=== PATIENT | female | born 1955 | race Caucasian/White ===

== ENCOUNTER 2017-12-25 18:24 | Emergency (ER) | payer SELFPAY ==
--- NOTE | 2017-12-25 18:53 | RAD ---
CHEST TWO VIEWS: History: Fever. Comparison: None. FINDINGS: Lungs are clear. No pneumothorax or effusion. Cardiac silhouette and mediastinal contours are within normal limits. IMPRESSION: No acute intrathoracic abnormality. POS: [facility]
[2017-12-25] MEDS ORDERED: methylPREDNISolone Sod Succ/PF 125 MG/2 ML VIAL ONE (19:41)
[2017-12-25] MEDS ORDERED: predniSONE 20 MG TAB ONE ×2 (20:07)
[2017-12-25 20:32] LABS: ALT (SGPT) 124 U/L (8-55); AST (SGOT) 94 U/L (5-34); Albumin 4.2 g/dL (3.5-5.0); Alkaline Phosphatase 111 U/L (40-150); Anion Gap 16 mmol/L (10-20); BUN (Urea Nitrogen) 10 mg/dL (9.8-20.1); Bilirubin, Total 1.4 mg/dL (0.2-1.2); Calc. Creatinine Clearance 0 mL/min (70-130); Carbon Dioxide 24 mmol/L (22-29); Chloride 103 mmol/L (98-107); Estimated GFR-MDRD 87; Globulin 4.4 g/dL (2.4-3.5); Glucose 86 mg/dL (70-105); Potassium 3.6 mmol/L (3.5-5.1); Protein, Total 8.6 g/dL (6.0-8.3); Sodium 139 mmol/L (136-145)
[2017-12-25] MEDS ORDERED: Azithromycin 250 MG TAB ONE (20:37)
[2017-12-25 20:39] LABS: Eosinophils 3 % (0-10); Large Platelets SLIGHT; Lymphocytes 50 % (21-51); MDiff Complete? YES; Mean Corpuscular HGB CONC 34.5 g/dL (32.0-36.0); Mean Corpuscular Hemoglobin 32.8 pg (27.0-31.0); Mean Corpuscular Volume 95.1 fl (81.0-99.0); Monocytes 10 % (0-10); Neutrophil 31 % (42-75); PLT Morphology Comment Appears Decreased; Platelet Count 109 thou/uL (130-400); RBC Distribution Width 11.9 % (11.5-14.5); RBC Morphology Normal; Reactive Lymphocytes 5 % (0-10); Red Blood Cell (RBC) Count 4.87 mill/uL (4.20-5.40); White Blood Cell (WBC) Count 6.4 thou/uL (4.8-10.8)
--- NOTE | 2017-12-25 20:49 | CT ---
CT CHEST WITHOUT CONTRAST: History: Cough, fever. Evaluate for pneumonia. Comparison: Chest radiograph, same day. FINDINGS: There are a few faint posterior segment right upper lobe central lobular pulmonary nodules. No pneumo thorax. No large effusion. Remainder of the lungs are clear. Upper abdomen is unremarkable. Moderate sized sliding hiatal hernia. A few likely reactive pretrachea l lymph nodes. Moderate calcification of the aorta. Ascending aorta measures up to 36 mm. Hepatic contour appears nodular. Skeleton is unremarkable. IMPRESSION: 1. Faint right upper lobe airspace central lobular opacity may represent infection or aspiration. 2. Moderate sized sliding hiatal hernia. 3. Nodular appearance of the liver suggesting cirrhosis. POS: [facility]
== END 2017-12-25 20:49 | disposition home or self-care (01) ==
LOC: SCSER 18:24
DX: J18.9 Pneumonia, unspecified organism (principal); M19.90 Unspecified osteoarthritis, unspecified site; J44.9 Chronic obstructive pulmonary disease, unspecified; F17.210 Nicotine dependence, cigarettes, uncomplicated
CPT/HCPCS: 71046; 71250; 80053; 83605; 85025; J2930; J7506; J7620

== ENCOUNTER → 2023-10-30 | Day surgery (SDC) | payer MEDICARE, MEDICAID | LOC: BICULT 12:43 | PROVIDERS: ATTEND Specialist | PROC: 0H95XZX Drainage of Chest Skin, External Approach, Diagnostic (ICD-10-PCS; principal; 2023-10-30) | DX: C50.411 Malignant neoplasm of upper-outer quadrant of right female breast (principal) | CPT/HCPCS: 19083; 19084; 38505; 88305; 88341; 88342; 88360; 88361 ==

== ENCOUNTER 2023-11-11 08:46 | Inpatient (IN) | payer MEDICARE, MEDICAID ==
[2023-11-11 09:25] LABS: Bilirubin Negative (Negative); Blood, Urine Negative (Negative); CAUTI Indications for Culture Alt mental st,lethar; Clarity Turbid (Clear); Glucose, Urine (Dipstick) Normal (Negative); Ketone, Urine Negative (Negative); Leukocyte 250 Leu/uL (Negative); Nitrite Negative (Negative); Protein, Urine (Dipstick) Negative (Neg-Trace); RBC/HPF 0-3 HPF (0-3); Specific Gravity, Urine 1.012 (1.002-1.036); Squamous Epithelial 0-3 HPF (0-3); Urobilinogen Greater than 12 mg/dL (Less than 2); pH, Urine 6.5 (5.0-9.0)
[2023-11-11 09:26] LABS: Bacteria/HPF 1+ HPF (None Seen)
[2023-11-11 09:28] LABS: Urine Culture Reflex Yes Yes
[2023-11-11 09:32] LABS: Amphetamine Not Detected (NotDetected); Barbiturates Screen Not Detected (NotDetected); Benzodiazepine Screen Not Detected (NotDetected); Cocaine Metabolite Screen Not Detected (NotDetected); Methadone Not Detected (NotDetected); Methamphetamine Not Detected (NotDetected); Opiate Screen Not Detected (NotDetected); Oxycodone Screen Not Detected (NotDetected); Phencyclidine (PCP) Not Detected (NotDetected); THC/Cannabinoid Screen Not Detected (NotDetected); Tricyclic Screen Not Detected (NotDetected)
[2023-11-11] MEDS ORDERED: Sodium Chloride 0.9% 100 ML ONE (09:40)
[2023-11-11] MEDS ORDERED: Cefepime 2 GM VIAL ONE (09:40)
[2023-11-11 10:05] LABS: #Eosinphils 0.1 thou/uL (0.0-0.7); #Monocytes 0.5 thou/uL (0.11-0.59); #Neutrophils 2.2 thou/uL (1.40-6.50); %Basophils 0.7 % (0.0-1.0); %Lymphocytes 40.4 % (21.0-51.0); %Monocytes 9.8 % (0.0-10.0); %Neutrophils 47.1 % (42.0-75.0); Hematocrit 41.3 % (36.0-47.0); Hemoglobin 14.5 g/dL (12.0-16.0); Mean Corpuscular HGB CONC 35.1 g/dL (32.0-36.0); Mean Corpuscular Volume 96.7 fl (78.0-98.0); Platelet Count 123 10x3/uL (130-400); RBC Distribution Width 16.1 % (11.5-14.5); Red Blood Cell (RBC) Count 4.27 mill/uL (4.20-5.40); White Blood Cell (WBC) Count 4.6 10x3/uL (4.8-10.8)
[2023-11-11 10:10] LABS: Actual Bicarbonate (HCO3v) 22.9 mEq/L (22-28); Base Excess -3.1 mEq/L (-2.0 to +3.0); Calcium, Ionized (venous) 1.22 mmol/L (1.16-1.32); Chloride (VBG) 110 mmol/L (98-106); Hematocrit-VBG 44 % (36.0-47.0); Potassium (VBG) 4.03 mmol/L (3.70-5.30); Sodium 144 mmol/L (133-146); pH (venous) 7.328 (7.32-7.43)
[2023-11-11 10:26] LABS: ALT (SGPT) 68 U/L (8-55); AST (SGOT) 135 U/L (5-34); Albumin 3.5 g/dL (3.4-4.8); Alkaline Phosphatase 146 U/L (40-110); Anion Gap 13 mmol/L (10-20); BUN (Urea Nitrogen) 13 mg/dL (9.8-20.1); Bilirubin, Total 3.6 mg/dL (0.2-1.2); Calc. Creatinine Clearance 0 mL/min (70-130); Calcium 9.4 mg/dL (7.8-10.44); Carbon Dioxide 22 mmol/L (23-31); Chloride 111 mmol/L (98-107); Estimated GFR 96; Globulin 4.2 g/dL (2.4-3.5); Glucose 94 mg/dL (80-115); Lipase 75 U/L (8-78); Magnesium 1.9 mg/dL (1.6-2.6); Potassium 3.9 mmol/L (3.5-5.1); Protein, Total 7.7 g/dL (5.8-8.1); Sodium 142 mmol/L (136-145)
[2023-11-11 10:28] LABS: Troponin I 0.013 ng/mL (< 0.028)
[2023-11-11 10:41] LABS: Acetaminophen Less than 10 mcg/mL (10.0-30.0); Alcohol Less than 10.0 mg/dL (Less than 10); Salicylate Less than 8.0 mg/dL (15.0-30.0)
[2023-11-11 11:02] LABS: SARS-CoV-2 NAA Rapid Test Not Detected (NotDetected)
[2023-11-11] MEDS ORDERED: Vancomycin 1 GM/200 ML (FROZEN) BAG ONE (11:44)
[2023-11-11] MEDS ORDERED: Iopamidol-370 76% 500 ML MDV (1 ML CHARGE) ONE (12:51)
[2023-11-11 12:55] LABS: Lactic Acid 1.1 mmol/L (0.5-2.2)
[2023-11-11 14:34] LABS: HBCM Index 0.09 S/CO (0-0.79); HBSAg Index 0.69 S/CO (0-0.99); Hep A IgM AB Non-Reactive S/CO (NonReactive); Hep A IgM S/CO 0.25 S/CO (0-0.79); Hep B Surf Ag Non-Reactive S/CO (NonReactive); Hepatitis B Core IgM Abs Non-Reactive S/CO (NonReactive)
[2023-11-11 14:40] LABS: Hep C IgG Ab Reflex HepC Qnt S/CO (NonReactive); Hep C Index 11.26 S/CO (0-0.79)
[2023-11-11] MEDS: Sodium Chloride 0.9% 1,000 ML IV SCH (16:10)
[2023-11-11] MEDS: Lactulose 20 GM (30 mL) UDCUP PER TUBE SCH ×2 (16:19→21:01)
[2023-11-11 18:49] VITALS: BMI 11.8
[2023-11-11 19:00] LABS: Bacteria/HPF None Seen HPF (None Seen); Bilirubin Negative (Negative); Blood, Urine Negative (Negative); CAUTI Indications for Culture Alt mental st,lethar; Clarity Clear (Clear); Glucose, Urine (Dipstick) Normal (Negative); Ketone, Urine Negative (Negative); Leukocyte 250 Leu/uL (Negative); Nitrite Negative (Negative); Protein, Urine (Dipstick) 10 mg/dL (Neg-Trace); RBC/HPF 0-3 HPF (0-3); Specific Gravity, Urine 1.045 (1.002-1.036); Squamous Epithelial 0-3 HPF (0-3); WBC/HPF Greater than 50 HPF (0-3); pH, Urine 6.5 (5.0-9.0)
[2023-11-12] MEDS: Sodium Chloride 0.9% 1,000 ML IV SCH (05:23)
[2023-11-12] MEDS: Lactulose 20 GM (30 mL) UDCUP PER TUBE SCH ×3 (09:09→15:58)
[2023-11-12] MEDS: Enoxaparin 30 MG (0.3 mL) SYRINGE SC SCH (09:10)
[2023-11-12] MEDS ORDERED: cefTRIAXone\\ROCEPHIN 2 GM in Sodium Chloride 0.9% 100 ML IVPB SCH (11:00)
[2023-11-12 11:47] LABS: Anion Gap 16 mmol/L (10-20); BUN (Urea Nitrogen) 14 mg/dL (9.8-20.1); Calc. Creatinine Clearance 35 mL/min (70-130); Calcium 8.5 mg/dL (7.8-10.44); Carbon Dioxide 13 mmol/L (23-31); Chloride 113 mmol/L (98-107); Estimated GFR 84; Glucose 136 mg/dL (80-115); Potassium 4.3 mmol/L (3.5-5.1); Sodium 138 mmol/L (136-145)
[2023-11-12] MEDS ORDERED: HYDROcodone/Acetaminophen 5/325 mg Tablet PO PRN (11:59)
[2023-11-12] MEDS ORDERED: Albuterol 200 PUFF (6.7GM INHALER) INH PRN (12:12)
[2023-11-12 12:56] LABS: #Eosinphils 0.1 thou/uL (0.0-0.7); #Monocytes 0.6 thou/uL (0.11-0.59); #Neutrophils 2.6 thou/uL (1.40-6.50); %Basophils 0.6 % (0.0-1.0); %Eosinophils 1.2 % (0.0-10.0); %Lymphocytes 32.8 % (21.0-51.0); %Monocytes 12.3 % (0.0-10.0); %Neutrophils 52.9 % (42.0-75.0); Hematocrit 36.5 % (36.0-47.0); Hemoglobin 12.5 g/dL (12.0-16.0); Mean Corpuscular HGB CONC 34.2 g/dL (32.0-36.0); Mean Corpuscular Hemoglobin 34.2 pg (27.0-31.0); Platelet Count 98 10x3/uL (130-400); RBC Distribution Width 16.3 % (11.5-14.5); Red Blood Cell (RBC) Count 3.65 mill/uL (4.20-5.40); White Blood Cell (WBC) Count 4.9 10x3/uL (4.8-10.8)
[2023-11-12] MEDS: Albuterol 200 PUFF (6.7GM INHALER) INH SCH (18:40)
[2023-11-12] MEDS: Lorazepam 2 MG/ML VIAL SLOW IVP PRN (20:06)
[2023-11-12] MEDS: Memantine 5 MG TAB PO SCH (20:10)
[2023-11-13] MEDS: Lorazepam 2 MG/ML VIAL SLOW IVP PRN ×2 (04:50→15:54)
[2023-11-13 06:11] LABS: #Eosinphils 0.1 thou/uL (0.0-0.7); #Monocytes 0.4 thou/uL (0.11-0.59); %Basophils 0.5 % (0.0-1.0); %Lymphocytes 40.3 % (21.0-51.0); %Monocytes 9.4 % (0.0-10.0); %Neutrophils 46.6 % (42.0-75.0); Hematocrit 38.7 % (36.0-47.0); Hemoglobin 13.6 g/dL (12.0-16.0); Mean Corpuscular HGB CONC 35.1 g/dL (32.0-36.0); Mean Corpuscular Hemoglobin 33.8 pg (27.0-31.0); Mean Platelet Volume 12.7 fL (7.4-10.4); Red Blood Cell (RBC) Count 4.02 mill/uL (4.20-5.40); White Blood Cell (WBC) Count 4.3 10x3/uL (4.8-10.8)
[2023-11-13 06:12] LABS: Mean Corpuscular Volume 96.3 fl (78.0-98.0); Platelet Count 66 10x3/uL (130-400)
[2023-11-13 06:23] LABS: ALT (SGPT) 52 U/L (8-55); AST (SGOT) 113 U/L (5-34); Albumin 2.8 g/dL (3.4-4.8); Alkaline Phosphatase 94 U/L (40-110); Anion Gap 10 mmol/L (10-20); BUN (Urea Nitrogen) 11 mg/dL (9.8-20.1); Calc. Creatinine Clearance 43 mL/min (70-130); Calcium 8.8 mg/dL (7.8-10.44); Carbon Dioxide 19 mmol/L (23-31); Chloride 108 mmol/L (98-107); Estimated GFR 97; Globulin 3.5 g/dL (2.4-3.5); Glucose 83 mg/dL (80-115); Potassium 3.8 mmol/L (3.5-5.1); Protein, Total 6.3 g/dL (5.8-8.1); Sodium 133 mmol/L (136-145)
[2023-11-13] MEDS ORDERED: Meropenem 1 GM in Sodium Chloride 0.9% 100 ML IVPB SCH ×2 (08:47→09:00)
[2023-11-13] MEDS: Lactulose 20 GM (30 mL) UDCUP PER TUBE SCH (09:48)
[2023-11-13] MEDS: Enoxaparin 30 MG (0.3 mL) SYRINGE SC SCH (09:48)
[2023-11-13] MEDS: Memantine 5 MG TAB PO SCH ×2 (09:48→19:54)
[2023-11-13] MEDS: Furosemide 20 MG TAB PO SCH (09:48)
[2023-11-13] MEDS: Losartan 25 MG TAB PO SCH (09:48)
[2023-11-13] MEDS: Montelukast Sodium 10 mg Tablet PO SCH (09:48)
[2023-11-13] MEDS: Albuterol 200 PUFF (6.7GM INHALER) INH SCH ×2 (09:48→21:43)
[2023-11-13] MEDS: Meropenem 1 GM in Sodium Chloride 0.9% 100 ML IVPB SCH (17:02)
[2023-11-14 04:44] LABS: #Eosinphils 0.1 thou/uL (0.0-0.7); #Monocytes 0.7 thou/uL (0.11-0.59); #Neutrophils 2.2 thou/uL (1.40-6.50); %Basophils 0.4 % (0.0-1.0); %Eosinophils 2.7 % (0.0-10.0); %Lymphocytes 38.3 % (21.0-51.0); %Monocytes 13.5 % (0.0-10.0); %Neutrophils 44.9 % (42.0-75.0); Hematocrit 34.7 % (36.0-47.0); Hemoglobin 11.8 g/dL (12.0-16.0); Mean Corpuscular Hemoglobin 33.3 pg (27.0-31.0); Mean Platelet Volume 12.7 fL (7.4-10.4); Platelet Count 94 10x3/uL (130-400); RBC Distribution Width 16.5 % (11.5-14.5); Red Blood Cell (RBC) Count 3.54 mill/uL (4.20-5.40); White Blood Cell (WBC) Count 4.8 10x3/uL (4.8-10.8)
[2023-11-14] MEDS: Meropenem 1 GM in Sodium Chloride 0.9% 100 ML IVPB SCH (06:04)
[2023-11-14] MEDS: Albuterol 200 PUFF (6.7GM INHALER) INH SCH ×2 (07:11→19:25)
[2023-11-14] MEDS: Lorazepam 2 MG/ML VIAL SLOW IVP PRN ×3 (08:21→23:30)
[2023-11-14] MEDS: Furosemide 20 MG TAB PO SCH (08:22)
[2023-11-14] MEDS: Enoxaparin 30 MG (0.3 mL) SYRINGE SC SCH (08:22)
[2023-11-14] MEDS: Montelukast Sodium 10 mg Tablet PO SCH (08:22)
[2023-11-14] MEDS: Lactulose 20 GM (30 mL) UDCUP PER TUBE SCH (08:22)
[2023-11-14] MEDS: Memantine 5 MG TAB PO SCH ×2 (08:30→19:55)
[2023-11-14] MEDS: Losartan 25 MG TAB PO SCH (08:30)
[2023-11-14] MEDS ORDERED: QUEtiapine 25 MG TAB PO SCH (19:45)
[2023-11-14] MEDS ORDERED: Ciprofloxacin Lactate/D5W 400 MG in Premix 1 BAG IVPB SCH (21:00)
[2023-11-15 05:11] LABS: #Eosinphils 0.2 thou/uL (0.0-0.7); #Monocytes 0.6 thou/uL (0.11-0.59); #Neutrophils 2.1 thou/uL (1.40-6.50); %Basophils 0.4 % (0.0-1.0); %Eosinophils 3.8 % (0.0-10.0); %Lymphocytes 35.8 % (21.0-51.0); %Monocytes 12.4 % (0.0-10.0); %Neutrophils 47.2 % (42.0-75.0); Mean Corpuscular HGB CONC 34.3 g/dL (32.0-36.0); Mean Corpuscular Hemoglobin 33.6 pg (27.0-31.0); Mean Platelet Volume 12.1 fL (7.4-10.4); Platelet Count 93 10x3/uL (130-400); RBC Distribution Width 16.7 % (11.5-14.5); Red Blood Cell (RBC) Count 3.57 mill/uL (4.20-5.40); White Blood Cell (WBC) Count 4.5 10x3/uL (4.8-10.8)
[2023-11-15 06:04] LABS: ALT (SGPT) 47 U/L (8-55); AST (SGOT) 96 U/L (5-34); Albumin 2.5 g/dL (3.4-4.8); Alkaline Phosphatase 175 U/L (40-110); Anion Gap 10 mmol/L (10-20); BUN (Urea Nitrogen) 13 mg/dL (9.8-20.1); Bilirubin, Total 1.7 mg/dL (0.2-1.2); Calc. Creatinine Clearance 43 mL/min (70-130); Calcium 8.7 mg/dL (7.8-10.44); Carbon Dioxide 24 mmol/L (23-31); Chloride 109 mmol/L (98-107); Estimated GFR 98; Globulin 3.2 g/dL (2.4-3.5); Glucose 91 mg/dL (80-115); Potassium 3.9 mmol/L (3.5-5.1); Protein, Total 5.7 g/dL (5.8-8.1); Sodium 139 mmol/L (136-145)
[2023-11-15] MEDS: Albuterol 200 PUFF (6.7GM INHALER) INH SCH ×2 (07:20→18:50)
[2023-11-15] MEDS ORDERED: Ciprofloxacin 500 MG TAB PO SCH (08:45)
[2023-11-15] MEDS: Enoxaparin 30 MG (0.3 mL) SYRINGE SC SCH (10:02)
[2023-11-15] MEDS: Losartan 25 MG TAB PO SCH (10:02)
[2023-11-15] MEDS: Furosemide 20 MG TAB PO SCH (10:03)
[2023-11-15] MEDS: Memantine 5 MG TAB PO SCH ×2 (10:03→20:23)
[2023-11-15] MEDS: Montelukast Sodium 10 mg Tablet PO SCH (10:03)
[2023-11-15] MEDS: Lactulose 20 GM (30 mL) UDCUP PER TUBE SCH ×2 (10:04→20:23)
[2023-11-15] MEDS: Rifaximin 550 MG TAB PO SCH ×2 (11:45→20:24)
[2023-11-15] MEDS: Lorazepam 2 MG/ML VIAL SLOW IVP PRN ×2 (15:36→23:45)
[2023-11-15] MEDS: Ciprofloxacin 500 MG TAB PO SCH (20:23)
[2023-11-15] MEDS ORDERED: QUEtiapine 100 MG TAB PO SCH (21:00)
[2023-11-16 04:37] LABS: #Basophils 0.1 thou/uL (0.0-0.2); #Eosinphils 0.2 thou/uL (0.0-0.7); #Monocytes 0.5 thou/uL (0.11-0.59); #Neutrophils 1.9 thou/uL (1.40-6.50); %Basophils 1.2 % (0.0-1.0); %Eosinophils 4.9 % (0.0-10.0); %Monocytes 12.2 % (0.0-10.0); %Neutrophils 45.2 % (42.0-75.0); Hematocrit 37.8 % (36.0-47.0); Hemoglobin 12.1 g/dL (12.0-16.0); Mean Corpuscular Hemoglobin 34.4 pg (27.0-31.0); Mean Platelet Volume 12.9 fL (7.4-10.4); RBC Distribution Width 17.4 % (11.5-14.5); Red Blood Cell (RBC) Count 3.52 mill/uL (4.20-5.40); White Blood Cell (WBC) Count 4.1 10x3/uL (4.8-10.8)
[2023-11-16 04:38] LABS: Mean Corpuscular Volume 107.4 fl (78.0-98.0); Platelet Count 73 10x3/uL (130-400)
[2023-11-16 04:55] LABS: ALT (SGPT) 49 U/L (8-55); AST (SGOT) 105 U/L (5-34); Albumin 2.3 g/dL (3.4-4.8); Alkaline Phosphatase 153 U/L (40-110); Anion Gap 8 mmol/L (10-20); BUN (Urea Nitrogen) 13 mg/dL (9.8-20.1); Bilirubin, Total 1.9 mg/dL (0.2-1.2); Calc. Creatinine Clearance 45 mL/min (70-130); Carbon Dioxide 20 mmol/L (23-31); Chloride 110 mmol/L (98-107); Estimated GFR 99; Globulin 3.6 g/dL (2.4-3.5); Glucose 90 mg/dL (80-115); Potassium 4.4 mmol/L (3.5-5.1); Protein, Total 5.9 g/dL (5.8-8.1); Sodium 134 mmol/L (136-145)
[2023-11-16] MEDS: Ciprofloxacin 500 MG TAB PO SCH (05:40)
[2023-11-16] MEDS: Rifaximin 550 MG TAB PO SCH (10:19)
[2023-11-16] MEDS: Memantine 5 MG TAB PO SCH (10:19)
[2023-11-16] MEDS: Montelukast Sodium 10 mg Tablet PO SCH (10:19)
[2023-11-16] MEDS: Furosemide 20 MG TAB PO SCH (10:19)
[2023-11-16] MEDS: Lactulose 20 GM (30 mL) UDCUP PER TUBE SCH (10:19)
[2023-11-16] MEDS: Losartan 25 MG TAB PO SCH (10:19)
[2023-11-16] MEDS: Enoxaparin 30 MG (0.3 mL) SYRINGE SC SCH (10:20)
[2023-11-16] MEDS: Albuterol 200 PUFF (6.7GM INHALER) INH SCH (11:00)
[2023-11-16] MEDS: Lorazepam 2 MG/ML VIAL SLOW IVP PRN (11:11)
[2023-11-16 13:04] VITALS: BP 137/73; TEMP 98.2
[2023-11-16 21:36] LABS: HCV RNA, log10 4.854 (.); Hep C PCR-Quant 71400 IU/mL (.)
== END 2023-11-16 14:54 | disposition home health service (06) | DRG 441 ==
LOC: ERS 08:46 → SURG B 14:43 → SURG A 11-13 18:21
PROVIDERS: ADMIT Hospitalist; ATTEND Emergency Medicine
DX: K76.82 Hepatic encephalopathy (principal); G93.41 Metabolic encephalopathy; N13.6 Pyonephrosis; E87.20 Acidosis, unspecified; C77.9 Secondary and unspecified malignant neoplasm of lymph node, unspecified; K74.60 Unspecified cirrhosis of liver; M10.9 Gout, unspecified; M19.90 Unspecified osteoarthritis, unspecified site; J44.9 Chronic obstructive pulmonary disease, unspecified; F17.210 Nicotine dependence, cigarettes, uncomplicated; F03.90 Unspecified dementia, unspecified severity, without behavioral disturbance, psychotic disturbance, mood disturbance, and anxiety; R76.8 Other specified abnormal immunological findings in serum; C50.919 Malignant neoplasm of unspecified site of unspecified female breast; K80.20 Calculus of gallbladder without cholecystitis without obstruction; Z98.51 Tubal ligation status; Z88.0 Allergy status to penicillin; Z88.8 Allergy status to other drugs, medicaments and biological substances; Z79.51 Long term (current) use of inhaled steroids; Z79.899 Other long term (current) drug therapy
CPT/HCPCS: 36415; 51701; 70450; 70551; 71045; 71260; 74177; 76705; 78306; 80048; 80053; 80074; 80306; 80307; 81001; 82140; 82805; 83605; 83690; 83735; 83880; 84484; 85025; 86300; 87040; 87077; 87086; 87186; 87522; 93005; 96361; 96365; 96367; A9503; J0692; J0696; J0744; J1650; J2060; J2185; J3370-JW; J3490; J7050; Q9967

== ENCOUNTER 2023-12-15 11:35 | Outpatient (CLI) | payer MEDICARE, MEDICAID ==
[2023-12-15 13:44] LABS: #Eosinphils 0.1 10x3/uL (0.0-0.5); #Monocytes 0.7 10x3/uL (0.0-1.1); #Neutrophils 4.1 10x3/uL (1.5-8.4); %Basophils 0.3 % (0.0-2.0); %Eosinophils 0.9 % (0.0-6.0); %Lymphocytes 22.8 % (18.0-47.0); %Monocytes 11.6 % (0.0-10.0); %Neutrophils 63.9 % (40.0-75.0); Hematocrit 41.1 % (34.9-44.5); Hemoglobin 14.1 g/dL (12.0-15.5); Mean Corpuscular HGB CONC 34.3 g/dL (32.0-36.0); Mean Corpuscular Hemoglobin 33.8 pg (27.0-33.0); Mean Corpuscular Volume 98.6 fl (81.6-98.3); Mean Platelet Volume 12.2 fl (7.4-10.4); Platelet Count 113 10x3/uL (150-450); RBC Distribution Width 15.7 % (11.5-14.5); Red Blood Cell (RBC) Count 4.17 10x6/uL (3.90-5.03); White Blood Cell (WBC) Count 6.4 10x3/uL (3.5-10.5)
[2023-12-15 13:52] LABS: INR-International Normal Ratio 1.2; PTT 29.8 sec (22.0-33.0); Prothrombin Time 12.6 sec (9.5-12.1)
[2023-12-15 13:53] LABS: Anion Gap 12 mmol/L (10-20); BUN (Urea Nitrogen) 10 mg/dL (9.8-20.1); Calc. Creatinine Clearance 0 mL/min (70-130); Calcium 8.8 mg/dL (7.8-10.44); Carbon Dioxide 20 mmol/L (23-31); Chloride 109 mmol/L (98-107); Estimated GFR 94; Glucose 84 mg/dL (80-115); Potassium 4.4 mmol/L (3.5-5.1); Sodium 137 mmol/L (136-145)
[2023-12-15 13:54] LABS: ALT (SGPT) 58 U/L (8-55); AST (SGOT) 116 U/L (5-34); Alkaline Phosphatase 109 U/L (40-110); Bilirubin, Total 2.5 mg/dL (0.2-1.2); Protein, Total 6.6 g/dL (5.8-8.1)
== END 2023-12-15 11:36 | disposition home or self-care (01) ==
LOC: LABBT 11:35
PROVIDERS: ATTEND Specialist
DX: Z01.818 Encounter for other preprocedural examination (principal); C50.911 Malignant neoplasm of unspecified site of right female breast
CPT/HCPCS: 71046; 80048; 80076; 85025; 85610; 85730; 93005; 93010